=== PATIENT | male | born 1985 | race Caucasian/White ===

== ENCOUNTER 2018-08-06 18:35 | Emergency (ER) | payer OTHER ==
[~2018-08-06] VITALS: Ht 180.3 cm; Wt 77.1 kg
[~2018-08-06 18:35] MED LIST: ATIVAN1 MG PO; BENADRYL25 MG PO; FLEXERIL PO; NORCO 5-325 TA1 EACH PO; PHENERGAN12.5 M2 RECTAL; ZOFRAN4 MG PO
[2018-08-06 19:39] LABS: HEMATOCRIT 45.8 % (42.0-52.0); HEMOGLOBIN 15.7 gm/dL (14.0-18.0); MCH 31.1 pg (26.0-34.0); MCHC 34.2 g/dL (28.0-37.0); MPV 8.7 fl. (7.2-11.1); NUCLEATED RBCS 0 /100WBC; PLATELET COUNT* 202 thou/uL (150-400); RBC 5.04 mil/uL (4.50-6.00); RDW-CV 12.8 % (10.5-14.5)
[2018-08-06 19:43] LABS: CREATININE 1.3 mg/dL (0.6-1.3); POTASSIUM 3.6 mmol/L (3.5-5.1)
[2018-08-06 19:46] LABS: ALBUMIN 4.4 g/dL (3.4-5.0)
[2018-08-06 19:58] LABS: TOTAL BILIRUBIN 0.8 mg/dL (<0.1-1.0); TOTAL PROTEIN 8.4 g/dL (6.4-8.2)
[2018-08-06 19:58] LABS: URINE BILIRUBIN NEGATIVE (Negative); URINE BLOOD TRACE (Negative); URINE CLARITY CLEAR; URINE COLOR YELLOW; URINE GLUCOSE-RANDOM NEGATIVE (Negative); URINE KETONES NEGATIVE (Negative); URINE LEUKOCYTES-REFLEX NEGATIVE (Negative); URINE PROTEIN NEGATIVE (Negative); URINE SPECIFIC GRAVITY 1.015 (1.005-1.030); URINE UROBILINOGEN 0.2 E.U./dl (0.2-1.0)
[2018-08-06 20:00] LABS: URINE NITRITE-REFLEX POSITIVE (Negative)
[2018-08-06 20:04] LABS: BACTERIA-REFLEX 1-9 Few /HPF (None Seen); CASTS None Seen /LPF (None Seen); CRYSTALS None Seen /LPF (None Seen); SQUAMOUS 0-3 Few /LPF (0-3); URINE RBC 0-2 Rare /HPF (0-2); URINE WBC-REFLEX 0-5 Rare /HPF (0-5)
[2018-08-06 20:06] LABS: ABSOLUTE LYMPHOCYTES 1.4 thou/uL (0.8-5.3); ABSOLUTE MONOCYTES 0.7 thou/uL (0.0-1.2); ABSOLUTE NEUTROPHILS 21.8 thou/uL (1.6-8.1); PLATELET ESTIMATE ADEQUATE
[2018-08-06] MEDS ORDERED: DOXYCYCLINE 10100 MG PO (21:39)
[2018-08-06] MEDS ORDERED: ZPAK PO (21:39)
[2018-08-06] MEDS ORDERED: ONDANSETRON HCL4 M2 PO (21:50)
[2018-08-06 22:09] VITALS: BP 95/53
== END 2018-08-06 22:10 | disposition home or self-care (01) ==
LOC: M.ERS 18:35
PROVIDERS: Nurse Practitioner Family
DX: J02.0 Streptococcal pharyngitis (principal); N39.0 Urinary tract infection, site not specified; R11.2 Nausea with vomiting, unspecified; F17.200 Nicotine dependence, unspecified, uncomplicated; Z91.048 Other nonmedicinal substance allergy status

== ENCOUNTER 2018-08-08 04:00 | Emergency (ER) | payer OTHER ==
[~2018-08-08] VITALS: Ht 180.3 cm; Wt 77.1 kg
[~2018-08-08 04:00] MED LIST changes: +DOXYCYCLINE 10100 MG PO; +ONDANSETRON HCL4 M2 PO; +ZPAK PO
[2018-08-08] MEDS ORDERED: TRAMADOL 50 MG50 MG PO (04:13)
[2018-08-08 05:10] LABS: CALCIUM 8.7 mg/dL (8.5-10.1); CREATININE 1.1 mg/dL (0.6-1.3); POTASSIUM 3.6 mmol/L (3.5-5.1)
[2018-08-08 06:34] VITALS: BP 97/58
== END 2018-08-08 06:35 | disposition home or self-care (01) ==
LOC: M.ERS 04:00
PROVIDERS: Emergency Medicine Emergency Medical Services
DX: J02.9 Acute pharyngitis, unspecified (principal); Z91.048 Other nonmedicinal substance allergy status

== ENCOUNTER 2020-08-26 13:26 | Observation (INO) | payer OTHER ==
[~2020-08-26] VITALS: Ht 180.3 cm; Wt 73.5 kg
[~2020-08-26 13:26] MED LIST changes: +TRAMADOL 50 MG50 MG PO
[2020-08-26 13:34] VITALS: BP 111/79
[2020-08-26 13:46] LABS: URINE BILIRUBIN NEGATIVE (Negative); URINE BLOOD NEGATIVE (Negative); URINE CLARITY CLEAR; URINE COLOR YELLOW; URINE GLUCOSE-RANDOM NEGATIVE (Negative); URINE KETONES NEGATIVE (Negative); URINE LEUKOCYTES NEGATIVE (Negative); URINE NITRITE NEGATIVE (Negative); URINE PROTEIN NEGATIVE (Negative); URINE SPECIFIC GRAVITY >= 1.030 (1.005-1.030); URINE UROBILINOGEN 0.2 E.U./dl (0.2-1.0)
[2020-08-26 13:57] LABS: ABSOLUTE EOSINOPHILS 0.1 thou/uL (0.0-0.7); ABSOLUTE LYMPHOCYTES 2.2 thou/uL (0.8-5.3); ABSOLUTE MONOCYTES 0.9 thou/uL (0.0-1.2); ABSOLUTE NEUTROPHILS 5.7 thou/uL (1.6-8.1); BASOPHILS 0.4 %; EOSINOPHILS 1.1 %; HEMATOCRIT 44.2 % (42.0-52.0); HEMOGLOBIN 15.1 gm/dL (14.0-18.0); MCH 31.7 pg (26.0-34.0); MCHC 34.2 g/dL (28.0-37.0); MCV 92.5 fL (80.0-100.0); MONOCYTES 9.8 %; MPV 8.2 fl. (7.2-11.1); NUCLEATED RBCS 0 /100WBC; PLATELET COUNT* 218 thou/uL (150-400); POLYS 63.7 %; RBC 4.77 mil/uL (4.50-6.00); RDW-CV 12.6 % (10.5-14.5); WBC 8.9 thou/uL (4.0-11.0)
[2020-08-26 14:04] LABS: CREATININE 1.1 mg/dL (0.6-1.3); POTASSIUM 3.6 mmol/L (3.5-5.1)
[2020-08-26 14:10] LABS: ALBUMIN 4.2 g/dL (3.4-5.0); TOTAL BILIRUBIN 0.5 mg/dL (<0.1-1.0); TOTAL PROTEIN 7.8 g/dL (6.4-8.2)
[2020-08-26 21:57] VITALS: BP 112/72
[2020-08-26 22:10] VITALS: BP 114/71
--- NOTE | 2020-08-27 07:09 | NUR ---
ASSUMED PATIENT CARE FROM NURSE SERRANO AT APPROXIMATELY 2330. NO C/O PAIN DURING THE NIGHT. IV IN LEFT AC-NS @ 100ML/HR. PATIENT HAS REMAINED NPO. WILL CONTINUE WITH PLAN OF CARE AND NURSING TO MONITOR.
[2020-08-27 08:05] VITALS: BP 113/72
[2020-08-27] MEDS ORDERED: HYDROCODON-ACE1 EAC7 PO (10:15)
[2020-08-27 14:40] VITALS: BP 113/72
--- NOTE | 2020-08-27 15:10 | NUR ---
PT A&OX4 VSS. NPO AT TIME OF AM ASSESSMENT. PT ON ROOM AIR. NICOTINE PATCH TO R SHOULDER. PT UP AD KELLE, GAIT STEADY. IV TO LAC PATENT, NS RUNNING AT 100ml/HR. CT ABD WITH CONTRAST, THEN RESUMED REG DIET. PT TOLERATES PO INTALE W/O COMPLAINT OF N/V. PT DC'D TO HOME FOLLOWING CT RESULTS. PT NAD FAMILY UPDATED AT BEDSIDE. PT AND STATE UNDERSTANDING OF DC EDUCATON, FOLLOW-UP INFORMATION AND RX PROVIDED. PT DECLINED WHEELCHAIR, AMBULATED WITH AND NURSING STAFF TO EXIT.
== END 2020-08-27 15:00 | disposition home or self-care (01) ==
LOC: M.ERS 13:26 → M.TBA-ER 17:37 → M.ORTHSURG 17:37
PROVIDERS: Physician Assistant; ADMIT Internal Medicine; ATTEND Internal Medicine
DX: K56.1 Intussusception (principal); Z20.822 Contact with and (suspected) exposure to COVID-19; R10.31 Right lower quadrant pain; F17.200 Nicotine dependence, unspecified, uncomplicated; Z79.899 Other long term (current) drug therapy

== ENCOUNTER 2020-11-25 23:29 | Emergency (ER) | payer OTHER ==
[~2020-11-25] VITALS: Ht 180.3 cm; Wt 79.8 kg
[~2020-11-25 23:29] MED LIST changes: +HYDROCODON-ACE1 EAC7 PO
[2020-11-25] MEDS ORDERED: BENTYL 10 MG CA10 MG PO (23:42)
[2020-11-25 23:51] LABS: ABSOLUTE BASOPHILS 0.1 thou/uL (0.0-0.2); ABSOLUTE EOSINOPHILS 0.1 thou/uL (0.0-0.7); ABSOLUTE LYMPHOCYTES 2.5 thou/uL (0.8-5.3); ABSOLUTE MONOCYTES 0.8 thou/uL (0.0-1.2); ABSOLUTE NEUTROPHILS 5.5 thou/uL (1.6-8.1); BASOPHILS 0.7 %; EOSINOPHILS 0.6 %; HEMATOCRIT 40.8 % (42.0-52.0); HEMOGLOBIN 14.1 gm/dL (14.0-18.0); LYMPHOCYTES 28.6 %; MCH 31.5 pg (26.0-34.0); MCHC 34.5 g/dL (28.0-37.0); MCV 91.2 fL (80.0-100.0); MONOCYTES 8.4 %; MPV 8.2 fl. (7.2-11.1); NUCLEATED RBCS 0 /100WBC; PLATELET COUNT* 194 thou/uL (150-400); POLYS 61.7 %; RBC 4.47 mil/uL (4.50-6.00); RDW-CV 12.8 % (10.5-14.5); WBC 8.9 thou/uL (4.0-11.0)
[2020-11-26 00:02] LABS: CALCIUM 8.6 mg/dL (8.5-10.1); CREATININE 1.5 mg/dL (0.6-1.3)
[2020-11-26 00:07] LABS: ALBUMIN 4.6 g/dL (3.4-5.0); TOTAL BILIRUBIN 0.4 mg/dL (<0.1-1.0); TOTAL PROTEIN 7.9 g/dL (6.4-8.2)
[2020-11-26 02:11] VITALS: BP 125/80
== END 2020-11-26 02:14 | disposition home or self-care (01) ==
LOC: M.ERS 23:29
PROVIDERS: Emergency Medicine
DX: K62.5 Hemorrhage of anus and rectum (principal); Z91.09 Other allergy status, other than to drugs and biological substances